=== PATIENT | male | born 1935 | race Caucasian/White ===

== ENCOUNTER → 2019-03-04 | Outpatient (CLI) | payer MEDICARE, OTHER, SELFPAY | PROVIDERS: Family Provider Family Medicine; Visit Provider Internal Medicine Hematology & Oncology | DX: C61 Malignant neoplasm of prostate (principal); Z79.818 Long term (current) use of other agents affecting estrogen receptors and estrogen levels | CPT/HCPCS: 84153; 84403; 96402; 99214; J9202 ==

== ENCOUNTER 2019-06-09 11:57 | Outpatient (CLI) | payer MEDICARE, OTHER, SELFPAY ==
[2019-06-09 13:16] LABS: Prostate Specific Antigen < 0.02 ng/mL (0-4)
[2019-06-09 13:17] LABS: Testosterone Total 5.3 ng/dL (193-740)
[2019-06-09] MEDS: lidocaine 1% INJ 20 mL INJECTION (14:18)
--- NOTE | 2019-06-09 14:22 | ONC FU_ITS ---
Dr. Yoder follow up note Patient: Chrales Kelley Unit #: [id number]: 1935 Dicatated By: Margy Yoder M.D.Date of Visit:Jun 09, 2019 Onc Med Follow-up/Prog Note History of Present Illness: Mr. Charles Kelley is a 83-year-old gentleman with long-standing history of prostrate cancer as per patient in 2004 when his PSA was around 4 he underwent prostate biopsy it came back positive. As per patient he was informed that it was a low risk disease so observation alone was planned and initially his PSA was stable and LELA exam was benign in December 2013 he was referred to Dr. Velazquez for evaluation at that time elected to continue with active surveillance but his PSA continued to slowly rise and in August 2017 his PSA increased to 29.2 from 18 and LELA exam was of normal patient underwent sonogram guided prostate gland biopsy on 12/31/2017 which showed prostatic adenocarcinoma large-volume disease, [place] 3+4/4+3. Patient underwent CT scan of abdomen pelvis on 01/28/2018 which showed no evidence of metastatic disease and bone scan done on same date showed no bone metastases. s/p ADT with Zoladex and Casodex ( for month only ) sfrom 02/25/2018. and treatment with radiation therapy till now on adjuvant zoladex alone Came for follow-up, denies any specific complaints, no fever or chills, no nausea or vomiting no diarrhea constipation occasionally hot flashes otherwise tolerating Zoladex well Medications: Allopurinol 1 Tablet (of 100 mg) Oral daily, Atenolol 1 Tablet (of 50 mg) Oral daily, Celecoxib 1 Capsule (of 200 mg) Oral b.i.d., CloNIDine HCl 1 Tablet (of 0.1 mg) Oral b.i.d., Furosemide 1 Tablet (of 40 mg) Oral daily, Klor-Con M10 1 Tablet (of 10 meq) Tablet, controlled release Oral daily, Lisinopril-Hydrochlorothiazide 1 Tablet (of 20-25 mg) Oral b.i.d., PreserVision AREDS 2+Multi Vit 1 Capsule Oral b.i.d. Allergies: No Known Allergies. Review of Systems: Constitutional - Appetite is good and weight is stable. No fever, chills, hot flashes, or night sweats. Energy level is fair/good, ENMT - No sinus congestion/drainage. No mouth sores. No sore throat or difficulty swallowing, Hematologic/Lymphatic - No abnormal bruising or bleeding, Respiratory - No shortness of breath. No cough. No pleuritic pain or hemoptysis, Cardiovascular - No angina pain. No palpitations, Gastrointestinal - No nausea or vomiting. No heartburn or acid reflux. No diarrhea or constipation. No blood in the stool or black stools, Genitourinary (M) - No dysuria or hematuria. No urinary frequency. No urgency or incontinence, Musculoskeletal - No joint or bone pain, Integumentary - Patient denies any skin rashes, open wounds, or skin issues, Neurologic - No headache. No numbness/paresthesias or other focal neurologic symptoms, Psychiatric - No anxiety or depression. No insomnia. Vital Signs: Performed on Jun 09, 2019 14:00 Height - 71.00 in Weight - 298.8 lbs (LOW) BSA - 2.50 sq.m BMI - 41.67 (HIGH) Temperature - 97.0 F (LOW) Pulse - 59 /min (LOW) Respiration - 20 /min BP - 110/62 mm(hg) O2 Sat - 93 % (LOW) Pain - 0 Performance Status: 0 - Fully active, able to carry on all predisease activities without restrictions. (ECOG) Physical Examination: ENMT - No oral exudates, ulcers, masses, thrush or mucositis. Oropharynx clear. Tongue normal, Cardiovascular - Regular rate and rhythm of heart, Extremities - no edema. Lab/Imaging: Test performed on Mar 04, 2019 13:12 Testosterone, Total 10.2 ng/dL PSA 0.02 ng/mL Impression: Adenocarcinoma prostate per ultrasound guided biopsy of prostate gland done on 12/31/2017 final pathology report showed Showed 3 cores (rt) [place] 3+4, involving 20-100%, , one core (rt) [place] 2+3, 100% involvement, one core (rt) 4+3, 5% involvement Clinical stage IIIa, PSA more than 20 One core (left) [place] 3+3, 50% involvement PSA 29.2 in August 2017 with confirmatory PSA at [facility] of 22.33 CT scan of abdomen pelvis done on 01/28/2018 showed no evidence of metastatic disease, slightly enlarged prostate gland bone scan done on 01/28/2018 showed no bone metastases s/p Zoladex and Casodex on 02/25/2018, Casodex for one month only to prevent tumor flare.followed by combined ADt and XRT tolerated Zoladex and RT well and completed XRT on 06/23/18 Now being treated with adjuvant Zoladex alone Plan: Discussed with patient regarding his labs his PSA is less than 0.02 and testosterone level was 5.3 Clinically, patient is doing well with no signs symptoms suggestive of recurrence of disease. Tolerating Zoladex well but with expected side effects e.g. occasionally hot flashes. We'll proceed with next 3 monthly dose of Zoladex today and then he will return to clinic in 3 months with PSA. Signed By: Margy Yoder M.D. <<Signature on File>>
[2019-06-09] MEDS: goserelin acetate 10.8 mg Implant IM (14:27)
== END 2019-06-09 11:58 | disposition home or self-care (01) ==
LOC: ONCMED 11:57
PROVIDERS: Family Provider Family Medicine; PCP Family Medicine; Visit Provider Internal Medicine Hematology & Oncology
DX: C61 Malignant neoplasm of prostate (principal); Z79.818 Long term (current) use of other agents affecting estrogen receptors and estrogen levels; Z79.899 Other long term (current) drug therapy
CPT/HCPCS: 36415; 84153; 84403; 96372; 96402; 99214; J2001; J9202

== ENCOUNTER → 2019-06-16 17:32 | Outpatient (BNVA) | payer MEDICARE, OTHER, SELFPAY | PROVIDERS: Family Provider Family Medicine; PCP Family Medicine; Visit Provider Nurse Practitioner Family | DX: R39.15 Urgency of urination (principal); N30.90 Cystitis, unspecified without hematuria | CPT/HCPCS: 80053; 81001 ==

== ENCOUNTER 2019-07-22 08:57 | Outpatient (CLI) | payer MEDICARE, OTHER, SELFPAY ==
--- NOTE | 2019-07-22 11:56 | ONCRAD EPV_ITS ---
Radiation Oncology Established Patient Visit Patient: Regina MR#: [id number] : 1935> Age: 83> Sex: Male> Dictated by: Dr. Chintan Murray Date of Service: 07/22/2019 Referring Physician(s) : Dr. Uziel Velazquez Diagnosis: C61 - Malignant neoplasm of prostate, Diagnosed 12/31/2017 (Active) Radiotherapy to Date: Course: Prostate, Treatment Site: PTV45, Ref. ID: [id number], Energy: 6X, Dose/Fx (cGy): 180, #Fx: 25 / 25, Dose Correction (cGy): 0, Total Dose (cGy): 4,500, Start Date: 04/23/2018, End Date: 05/28/2018, Elapsed Days: 35 Treatment Site: PTV55, Ref. ID: [id number], Energy: 6X, Dose/Fx (cGy): 200, #Fx: 5 / 5, Dose Correction (cGy): 0, Total Dose (cGy): 1,000, Start Date: 05/29/2018, End Date: 06/04/2018, Elapsed Days: 6 Treatment Site: PTV81, Ref. ID: [id number], Energy: 6X, Dose/Fx (cGy): 200, #Fx: 13 / 13, Dose Correction (cGy): 0, Total Dose (cGy): 2,600, Start Date: 06/05/2018, End Date: 06/23/2018, Elapsed Days: 18 Chief Complaint / History of Present Illness: Since completing treatment he notes some loose bowels that are pudding in consistency but not overtly diarrhea. He has no defecation pain or bleeding. He has not used any Imodium. He also notes narrower caliber of his stool down to the size of a finger diameter. He is now scheduled to have colonoscopy in the near future as scheduled by his primary physician. He notes improved urination with use of tamsulosin at bedtime he continues to have 1-2 time nocturia despite this which is bothersome. He has no urgency pain or bleeding with urination. 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 Current Medications: Allopurinol, atenolol, celecoxib, cloNIDine HCl, furosemide, klor-Con M10, lisinopril-Hydrochlorothiazide, preserVision AREDS 2+Multi Vit. Allergies: No Known Allergies Current Complaints / Review of Systems: Constitutional - Denies lack of appetite, fatigue, fever, night sweats and change in weight. Integumentary - Denies rash. Cardiovascular - Denies chest pain and palpitations. Respiratory - Complains of dyspnea with exertion. Denies cough. Gastrointestinal - Complains of change in bowel habits consisting of loose stools. States he has a follow up colonoscopy with his PCP to evaluate further.. Denies nausea and vomiting. Genitourinary (M) - Denies dysuria and hematuria. Musculoskeletal - Denies bone pain and joint pain. Neurologic - Denies headaches and sensory problems. Psychiatric - Denies depression. Hematologic/Lymphatic - Denies easy bruising.. Vital Signs: Performed on 07/22/2019 9:53 AM Weight - 304.2 lbs, Temperature - 97.6 f, Pulse - 64, Respiration - 22, O2 Sat - 96 %, Pain - 0 and BP - 132/ 73 mm(hg). Physical Exam: General: Alert and oriented x 3. No acute distress. Lymph nodes he had no palpable cervical or supraclavicular adenopathy. Extremities revealed no pedal edema. Rectal examination revealed a normal sized vault no masses tenderness or bleeding prostate was small and soft no masses or asymmetry. Performance Status: 100 Lab: None pending. Test performed on 06/09/2019 12:15 PM PSA <0.02, PSA 11/2018 0.03 Testosterone, Total - 5.3 ng/dl (low). Pathology: Primary, c61 - malignant neoplasm of prostate, Diagnosed 12/31/2017 (active). Imaging: See HPI Impression: Primary adenocarcinoma the prostate. He continues to show excellent disease control as evidenced by his undetectable PSA level. I did advise increasing his tamsulosin to 2 at bedtime to further improve his nocturia. I advised use of modest Imodium to reduce stool frequency and potentially improve stool consistency. He is scheduled for colonoscopy although he could not specify the date. We will continue to see Dr. Yoder for androgen deprivation therapy. We will plan to see him in follow-up in 1 year. Signed by: 07/22/2019 11:55:11 AM <<Signature on File>> Time spent with patient: CPT Code: CPT Code:
== END 2019-07-22 08:58 | disposition home or self-care (01) ==
LOC: ONCMED 09:07
PROVIDERS: PCP Family Medicine; Visit Provider Radiology Radiation Oncology
DX: C61 Malignant neoplasm of prostate (principal); R35.1 Nocturia; I10 Essential (primary) hypertension; H35.30 Unspecified macular degeneration; Z79.899 Other long term (current) drug therapy; Z79.818 Long term (current) use of other agents affecting estrogen receptors and estrogen levels
CPT/HCPCS: 99213

== ENCOUNTER → 2019-08-10 07:55 | Outpatient (BNVA) | payer MEDICARE, OTHER, SELFPAY | PROVIDERS: PCP Family Medicine; Visit Provider Urology | DX: N30.91 Cystitis, unspecified with hematuria (principal); N40.1 Benign prostatic hyperplasia with lower urinary tract symptoms; R31.0 Gross hematuria | CPT/HCPCS: 81001 ==

== ENCOUNTER 2019-09-15 11:16 | Outpatient (CLI) | payer MEDICARE, OTHER, SELFPAY ==
[2019-09-15 12:06] LABS: Prostate Specific Antigen 0.016 ng/mL (0-4)
--- NOTE | 2019-09-15 13:22 | ONC FU_ITS ---
Dr. Yoder follow up note Patient: Cahrles Kelley Unit #: [id number]: 1935 Dicatated By: Margy Yoder M.D.Date of Visit:Sep 15, 2019 Onc Med Follow-up/Prog Note History of Present Illness: Mr. Charles Kelley is a 84-year-old gentleman with long-standing history of prostrate cancer as per patient in 2004 when his PSA was around 4 he underwent prostate biopsy it came back positive. As per patient he was informed that it was a low risk disease so observation alone was planned and initially his PSA was stable and LELA exam was benign in December 2013 he was referred to Dr. Velazquez for evaluation at that time elected to continue with active surveillance but his PSA continued to slowly rise and in August 2017 his PSA increased to 29.2 from 18 and LELA exam was of normal patient underwent sonogram guided prostate gland biopsy on 12/31/2017 which showed prostatic adenocarcinoma large-volume disease, [place] 3+4/4+3. Patient underwent CT scan of abdomen pelvis on 01/28/2018 which showed no evidence of metastatic disease and bone scan done on same date showed no bone metastases. s/p ADT with Zoladex and Casodex ( for month only ) sfrom 02/25/2018. and treatment with radiation therapy till now on adjuvant zoladex alone Came for follow-up, denies any specific complaints, no fever chills, no nausea or vomiting, no new bony pains, no dysuria or hematuria, occasionally hot flashes otherwise tolerating Zoladex well Medications: Allopurinol 1 Tablet (of 100 mg) Oral daily, Atenolol 1 Tablet (of 50 mg) Oral daily, Celecoxib 1 Capsule (of 200 mg) Oral b.i.d., CloNIDine HCl 1 Tablet (of 0.1 mg) Oral b.i.d., Furosemide 1 Tablet (of 40 mg) Oral daily, Klor-Con M10 1 Tablet (of 10 meq) Tablet, controlled release Oral daily, Lisinopril-Hydrochlorothiazide 1 Tablet (of 20-25 mg) Oral b.i.d., PreserVision AREDS 2+Multi Vit 1 Capsule Oral b.i.d. Allergies: No Known Allergies. Review of Systems: Constitutional - Appetite is good and weight is stable. No fever, chills, hot flashes, or night sweats. Energy level is fair/good, ENMT - No sinus congestion/drainage. No mouth sores. No sore throat or difficulty swallowing, Hematologic/Lymphatic - No abnormal bruising or bleeding, Respiratory - No shortness of breath. No cough. No pleuritic pain or hemoptysis, Cardiovascular - No angina pain. No palpitations, Gastrointestinal - No nausea or vomiting. No heartburn or acid reflux. No diarrhea or constipation. No blood in the stool or black stools, Genitourinary (M) - No dysuria or hematuria. No urinary frequency. No urgency or incontinence, Musculoskeletal - No joint or bone pain, Integumentary - Patient denies any skin rashes, open wounds, or skin issues, Neurologic - No headache. No numbness/paresthesias or other focal neurologic symptoms, Psychiatric - No anxiety or depression. No insomnia. Vital Signs: Performed on Sep 15, 2019 12:40 Height - 71.00 in Weight - 305.6 lbs (HIGH) BSA - 2.53 sq.m BMI - 42.62 (HIGH) Temperature - 97.6 F (LOW) Pulse - 74 /min Respiration - 19 /min BP - 141/64 mm(hg) (HIGH) O2 Sat - 91 % (LOW) Pain - 0 Performance Status: 0 - Fully active, able to carry on all predisease activities without restrictions. (ECOG) Physical Examination: ENMT - No mouth sores no thrush, no jaundice, Respiratory - Lungs are clear, Cardiovascular - Regular rate and rhythm of heart, Abdomen - Soft, bowel sounds present, Extremities - No visible edema. Lab/Imaging: Test performed on Jun 09, 2019 12:15 Testosterone, Total 5.3 ng/dL PSA < 0.02 ng/mL Impression: Adenocarcinoma prostate per ultrasound guided biopsy of prostate gland done on 12/31/2017 final pathology report showed Showed 3 cores (rt) [place] 3+4, involving 20-100%, , one core (rt) [place] 2+3, 100% involvement, one core (rt) 4+3, 5% involvement Clinical stage IIIa, PSA more than 20 One core (left) [place] 3+3, 50% involvement PSA 29.2 in August 2017 with confirmatory PSA at [facility] of 22.33 CT scan of abdomen pelvis done on 01/28/2018 showed no evidence of metastatic disease, slightly enlarged prostate gland bone scan done on 01/28/2018 showed no bone metastases s/p Zoladex and Casodex on 02/25/2018, Casodex for one month only to prevent tumor flare.followed by combined ADt and XRT tolerated Zoladex and RT well and completed XRT on 06/23/18 Now being treated with adjuvant Zoladex alone Plan: Discussed with patient regarding his labs PSA 0.016, clinically, patient is doing well, no signs symptoms suggestive of recurrence of disease, tolerating 3 monthly Zoladex well but with expected side effects e.g. occasional hot flashes. We will proceed with next 3 monthly dose today and then he will return to clinic in 3 months with a PSA and for adjuvant ADT Signed By: Margy Yoder M.D. <<Signature on File>>
[2019-09-15] MEDS: lidocaine 1% INJ 20 mL INJECTION (13:25)
[2019-09-15] MEDS: goserelin acetate 10.8 mg Implant IM (13:35)
== END 2019-09-15 11:17 | disposition home or self-care (01) ==
LOC: ONCMED 11:24
PROVIDERS: PCP Family Medicine; Visit Provider Internal Medicine Hematology & Oncology
DX: C61 Malignant neoplasm of prostate (principal); Z79.818 Long term (current) use of other agents affecting estrogen receptors and estrogen levels; Z92.3 Personal history of irradiation
CPT/HCPCS: 84153; 96372; 96402; 99214; J2001; J9202

== ENCOUNTER 2019-10-27 14:49 | Emergency (ER) | payer MEDICARE, OTHER, SELFPAY ==
[2019-10-27 14:50] VITALS: BP 164/99; PULSE 71; RESP 20; TEMP 36.8; O2SAT 93; BMI 41.8
[2019-10-27 14:58] VITALS: BP 157/80; PULSE 78; RESP 20; O2SAT 94
--- NOTE | 2019-10-27 15:05 | ED_ITS ---
HPI - Wound/Laceration General: Chief Complaint: Wound/Laceration Stated Complaint: HEAD LAC Time Seen by Provider: 10/27/19 14:51 History of Present Illness: HPI narrative: 84-year-old male who tipped his lawnmower. He initially wanted to refuse care at the scene he has an abrasion and small hematoma on the back of the scalp there is no loss of consciousness he is awake alert and oriented x3 he denies any injury. His left leg was a slightly underneath the lawnmower he states was he was able to get it out on his own. He denies any significant pain at this time. His immunizations are up-to-date his last tetanus was within the last 5 years Onset (ago): minute(s) Location: scalp Place: home and outdoors Context: accidental Associated symptoms: Reports no associated symptoms; Denies chills, fever(s), nausea or vomiting Review of Systems Const: Denies: fever(s), chills, body aches, change in appetite, fatigue or malaise ENMT: Denies: throat pain, ear or mastoid pain, nasal discharge or nasal congestion Card: Denies: chest pain, edema, dyspnea on exertion or orthopnea Resp: Denies: dyspnea, productive cough or non-productive cough GI: Denies: abdominal pain, nausea, vomiting, hematemesis, coffee ground emesis, diarrhea, constipation, bloating, hematochezia or melena : Denies: flank pain, dysuria, urinary frequency or urinary urgency PFSH ED PFSH: Medical History BPH NOS w ur obs/LUTS Prostate CA Urinary hesitancy Surgical History History of orchiectomy Hx of appendectomy Hx of laminectomy Hx of prostate biopsy Family History Mother , at age 78 Cancer breast Father , at age 77 Stroke Social History Smoking and tobacco status: never smoked Alcohol intake: never Adopted: No Caregiver/support person: No Lives independently: Yes Marital status: / Current occupational status: retired Current occupation: automotive parts salesperson History of recent travel: No Physical Exam Const: COMMON NORMALS: no acute distress GENERAL APPEARANCE: cooperative and comfortable ORIENTATION/CONSCIOUSNESS: Yes awake, Yes oriented to person, Yes oriented to place and Yes oriented to time HENMT: COMMON NORMALS: normocephalic and hearing grossly normal bilaterally HEAD & SCALP: normocephalic OTHER: Small hematoma superior portion of the occiput with a very superficial abrasion no active bleeding no other injuries able to move all extremities without difficulty able to demonstrate ambulation without any difficulty no difficulty with balance. Eye: COMMON NORMALS: Equal, round and reactive pupils present, EOMs intact bilaterally, conjunctivae normal and no scleral icterus CONJUNCTIVA: Yes conjunctivae normal PUPIL: Yes Equal, round and reactive pupils present Neck/C-Spine: COMMON NORMALS: full ROM, no lymphadenopathy, supple and no JVD Lymph: LYMPHATIC: no lymphadenopathy noted and no lymphedema noted Resp: COMMON NORMALS: normal respiratory effort, No retractions, No use of accessory muscles and clear to auscultation bilaterally AUSCULTATION: clear to auscultation bilaterally Cardio: COMMON NORMALS: no JVD, regular rate, regular rhythm and No murmurs present (Cardio) RATE: regular rate RHYTHM: regular rhythm GI: COMMON NORMALS: Soft to palpation and No hepatosplenomegaly present AUSCULTATION: Yes normoactive bowel sounds PALPATION: Yes Soft to palpation, No Tenderness to palpation present (GI), No Guarding due to palpation present (GI) and Yes No hepatosplenomegaly present Extremity: COMMON NORMALS: normal to inspection, capillary refill normal, no clubbing, cyanosis or edema, no calf tenderness and no pedal edema Neuro: SENSORIUM/ORIENTATION: Yes oriented to person, Yes oriented to place and Yes oriented to time Skin: COMMON NORMALS: no rashes or lesions noted GENERAL SKIN EXAM: no ra shes or lesions noted Course Vital Signs: Vital signs: Vital Signs Temperature 98.3 F 10/27/19 14:50 Pulse Rate 78 10/27/19 14:58 Respiratory Rate 20 H 10/27/19 14:58 Blood Pressure 157/80 10/27/19 14:58 Pulse Oximetry 94 10/27/19 14:58 MDM - Wound/Laceration MDM Narrative: Medical decision making narrative: Patient states he feels fine and does not want to be here he is no obvious deformity he has a history of prostate cancer with metastasis. He is ambulatory he is alert and oriented his neurologic exam is normal. He prefer just to go home we discussed imaging he declines because he is really does not feel like he needs any and is not really hurting anywhere other than superficial injuries. We will go ahead and discharge him home have him return if he has any further problems. Discharge Plan Discharge Patient Disposition: Home Clinical Impression: Abrasion, Fall Condition: Stable Prescriptions: No Action Zoladex 10.8 mg implant SUBCUT RF: 0 allopurinol 100 mg tablet 100 mg PO DAILY RF: 0 furosemide 40 mg tablet 40 mg PO DAILY RF: 0 amlodipine 10 mg tablet 10 mg PO DAILY RF: 0 celecoxib 200 mg capsule 200 mg PO BID RF: 0 potassium chloride 10 mEq capsule, extended release 10 meq PO DAILY RF: 0 atenolol 50 mg tablet 50 mg PO DAILY RF: 0 One-A-Day Men 50 Plus (ginkgo) 400-300-120 mcg-mcg-mg tablet PO RF: 0 clonidine HCl 0.2 mg tablet 0.2 mg PO BID RF: 0 lisinopril-hydrochlorothiazide 20-25 mg tablet 1 tab PO BID RF: 0 tamsulosin 0.4 mg capsule 0.4 mg PO .AT BEDTIME Qty: 30 RF: 6 ciprofloxacin HCl 250 mg tablet 250 mg PO BID Qty: 28 RF: 3 Referrals: Santo Carson MD [Primary Care Provider] - Discharge Diet: Usual diet Discharge Activity: Increase activity as tolerated Activity Restrictions/Additional Instructions: Return if you have any problems Discharge Date/Time: 10/27/19 15:17 Coding Level of Care Code ED Bartender for Topher Fwd Exam Comprehensive
== END 2019-10-27 15:17 | disposition home or self-care (01) ==
LOC: ER 15:25
PROVIDERS: Emergency Provider Family Medicine; PCP Family Medicine
DX: S00.01XA Abrasion of scalp, initial encounter (principal); W31.89XA Contact with other specified machinery, initial encounter; Z85.46 Personal history of malignant neoplasm of prostate
CPT/HCPCS: 12345; 99282

== ENCOUNTER 2020-01-19 12:32 | Outpatient (CLI) | payer MEDICARE, OTHER, SELFPAY ==
[2020-01-19 21:42] LABS: Prostate Specific Antigen 0.006 ng/mL (0-4)
== END 2020-01-19 12:33 | disposition home or self-care (01) ==
PROVIDERS: PCP Family Medicine; Visit Provider Internal Medicine Hematology & Oncology
DX: C61 Malignant neoplasm of prostate (principal)
CPT/HCPCS: 36415; 84153

== ENCOUNTER 2020-01-20 05:33 | Outpatient (CLI) | payer MEDICARE, OTHER, SELFPAY ==
[2020-01-20] MEDS: lidocaine 1% INJ 20 mL INJECTION (08:45)
[2020-01-20] MEDS: goserelin acetate 10.8 mg Implant IM (08:55)
--- NOTE | 2020-01-20 17:10 | ONC FU_ITS ---
Dr. Yoder follow up note Patient: Charles Kelley Unit #: [id number]: 1935 Dicatated By: Margy Yoder M.D.Date of Visit:Jan 20, 2020 Onc Med Follow-up/Prog Note History of Present Illness: Mr. Charles Kelley is a 84-year-old gentleman with long-standing history of prostrate cancer as per patient in 2004 when his PSA was around 4 he underwent prostate biopsy it came back positive. As per patient he was informed that it was a low risk disease so observation alone was planned and initially his PSA was stable and LELA exam was benign in December 2013 he was referred to Dr. Velazquez for evaluation at that time elected to continue with active surveillance but his PSA continued to slowly rise and in August 2017 his PSA increased to 29.2 from 18 and LELA exam was of normal patient underwent sonogram guided prostate gland biopsy on 12/31/2017 which showed prostatic adenocarcinoma large-volume disease, [place] 3+4/4+3. Patient underwent CT scan of abdomen pelvis on 01/28/2018 which showed no evidence of metastatic disease and bone scan done on same date showed no bone metastases. s/p ADT with Zoladex and Casodex ( for month only ) from 02/25/2018. and treatment with radiation therapy till now on adjuvant zoladex alone Came for follow-up, denies any specific complaints, no fever chills, no nausea or vomiting, no diarrhea constipation, no melena or hematochezia, as per patient, in December 2019 patient was diagnosed with COVID-19 and was in hospital for 2 weeks and was treated with oxygen then he was sent home on O2 for another 2 weeks and which was recently discontinued, now feeling better but with generalized weakness and fatigue but no nausea or vomiting no diarrhea or constipation no headaches blurred vision or double vision, occasionally hot flashes otherwise tolerating Zoladex well Medications: Allopurinol 1 Tablet (of 100 mg) Oral daily, Atenolol 1 Tablet (of 50 mg) Oral daily, Celecoxib 1 Capsule (of 200 mg) Oral b.i.d., CloNIDine HCl 1 Tablet (of 0.1 mg) Oral b.i.d., Furosemide 1 Tablet (of 40 mg) Oral daily, Klor-Con M10 1 Tablet (of 10 meq) Tablet, controlled release Oral daily, Lisinopril-Hydrochlorothiazide 1 Tablet (of 20-25 mg) Oral b.i.d., PreserVision AREDS 2+Multi Vit 1 Capsule Oral b.i.d. Allergies: No Known Allergies. Review of Systems: Constitutional - Appetite is good and weight is stable. No fever, chills, hot flashes, or night sweats. Energy level is fair/good, ENMT - No sinus congestion/drainage. No mouth sores. No sore throat or difficulty swallowing, Hematologic/Lymphatic - No abnormal bruising or bleeding, Respiratory - No shortness of breath. No cough. No pleuritic pain or hemoptysis, Cardiovascular - No angina pain. No palpitations, Gastrointestinal - No nausea or vomiting. No heartburn or acid reflux. No diarrhea or constipation. No blood in the stool or black stools, Genitourinary (M) - No dysuria or hematuria. No urinary frequency. No urgency or incontinence, Musculoskeletal - No joint or bone pain, Integumentary - Patient denies any skin rashes, open wounds, or skin issues, Neurologic - No headache. No numbness/paresthesias or other focal neurologic symptoms, Psychiatric - No anxiety or depression. No insomnia. Vital Signs: Performed on Jan 20, 2020 08:09 Height - 71.00 in Weight - 289.0 lbs (LOW) BSA - 2.47 sq.m BMI - 40.31 (HIGH) Temperature - 97.6 F (LOW) Pulse - 71 /min Respiration - 24 /min BP - 152/69 mm(hg) (HIGH) O2 Sat - 93 % (LOW) Pain - 0 Performance Status: 1 - No physically strenuous activity, but ambulatory and able to carry out light or sedentary work (e.g. office work, light house work). (ECOG) Physical Examination: ENMT - No mouth sores, no thrush, no jaundice, Respiratory - Lungs are clear to auscultation, Cardiovascular - Regular rate and rhythm of heart, Abdomen - Soft, bowel sounds present, Extremities - No visible edema. Lab/Imaging: Test performed on Sep 15, 2019 11:30 PSA 0.016 ng/mL Impression: Adenocarcinoma prostate per ultrasound guided biopsy of prostate gland done on 12/31/2017 final pathology report showed Showed 3 cores (rt) [place] 3+4, involving 20-100%, , one core (rt) [place] 2+3, 100% involvement, one core (rt) 4+3, 5% involvement Clinical stage IIIa, PSA more than 20 One core (left) [place] 3+3, 50% involvement PSA 29.2 in August 2017 with [place] [facility] [place] of abdomen pelvis done on 01/28/2018 showed no evidence of metastatic disease, slightly enlarged prostate gland bone scan done on 01/28/2018 showed no bone metastases s/p Zoladex and Casodex on 02/25/2018, Casodex for one month only to prevent tumor flare.followed by combined ADt and XRT tolerated Zoladex and RT well and completed XRT on 06/23/18 Now being treated with adjuvant Zoladex alone Plan: Discussed with patient regarding his lab PSA which is 0.006 compared to 0.16 last time, Clinically, patient doing well with no new signs symptoms except recently got infected with COVID-19 and up in hospital for 2 weeks but now recovering well. Complaining of generalized weakness and fatigue. We will proceed with next 3 monthly dose of Zoladex today return to clinic in 3 months with CBC CMP and PSA And for Zoladex Signed By: Margy Yoder M.D. <<Signature on File>>
== END 2020-01-20 05:34 | disposition home or self-care (01) ==
LOC: ONCMED 05:36
PROVIDERS: PCP Family Medicine; Visit Provider Internal Medicine Hematology & Oncology
DX: C61 Malignant neoplasm of prostate (principal); R53.1 Weakness; R53.83 Other fatigue; Z79.818 Long term (current) use of other agents affecting estrogen receptors and estrogen levels; Z86.19 Personal history of other infectious and parasitic diseases; Z92.21 Personal history of antineoplastic chemotherapy; Z92.3 Personal history of irradiation
CPT/HCPCS: 96372; 96402; 99214; J9202